=== PATIENT | male | born 1995 | race Caucasian/White ===

== ENCOUNTER 2016-08-23 02:19 | Emergency (ER) | payer SELFPAY ==
[2016-08-23 02:33] VITALS: BP 148/95; PULSE 75; RESP 16; TEMP 98.1; O2SAT 99
--- NOTE | 2016-08-23 04:13 | PD ---
HPI Chief Complaint: Alcohol/Drug Intoxication Time Seen by Provider: 04:08 Travel History International Travel<30 days: No Contact w/Intl Traveler<30days: No Traveled to known affect area: No History of Present Illness HPI 20-year-old white male presents to emergency department by EMS for evaluation of intoxication. The patient was at the [place] [employer] this evening drinking large quantities of alcohol. The patient became heavily intoxicated and wanted to sleep on the deck. EMS was summoned them the patient was brought to the ER. Here the patient is heavily intoxicated. No meaningful history is obtainable from the patient. Her is no evidence of trauma. He appears to be handling his secretions. [facility] Past Medical History Medical History: Unable to Obtain Tetanus Vaccination: Unknown Past Surgical History Surgical History: Unable to Obtain Social History Alcohol Use: Yes Tobacco Use: No Allergies-Medications (Allergen,Severity, Reaction): Coded Allergies: No Known Allergies (Unverified , 08/23/16) Reported Meds & Prescriptions Reported Meds & Active Scripts Active No Active Prescriptions or Reported Medications Review of Systems ROS Limitations: Intoxication Physical Exam Narrative GENERAL: Well-nourished, well-developed patient. Smells of EtOH appears heavily intoxicated. He is arousable to sternal rub but falls asleep readily. There is no evidence of trauma. SKIN: Warm and dry. HEAD: Normocephalic and atraumatic. EYES: No scleral icterus. No injection or drainage. ENT: No nasal drainage noted. Mucous membranes pink. Airway patent. The patient 's handling his secretions. NECK: Supple, trachea midline. Moves head freely without obvious discomfort. CARDIOVASCULAR: Regular rate and rhythm without murmurs, gallops, or rubs. RESPIRATORY: Breath sounds equal bilaterally. No accessory muscle use. GASTROINTESTINAL: Abdomen soft, non-tender, nondistended. EXTREMITIES: No cyanosis or edema. BACK: Nontender without obvious deformity. No CVA tenderness. NEURO: Patient is alert to person but he is not orientated. no sensorimotor deficits. Nonfocal. Slurred speech. Data Data Last Documented VS Vital Signs Date Time Temp Pulse Resp B/P Pulse Ox O2 Delivery O2 Flow Rate FiO2 08/23/16 02:33 98.1 75 16 148/95 99 MDM Medical Decision Making Medical Screen Exam Complete: Yes Emergency Medical Condition: Yes Medical Record Reviewed: Yes Differential Diagnosis Differential diagnoses: Alcohol intoxication, substance abuse, electrolyte abnormality, malingering Narrative Course The patient appears that he is here most likely for spring. He is heavily intoxicated. He does arouse to noxious stimuli but falls readily to sleep when the stimulation is removed. The patient is maintaining his airway. He is handling his secretions well. The patient will be allowed to sleep it off here in the emergency room. This is alcohol intoxication Diagnosis Primary Impression: Alcohol intoxication Qualified Code: F10.120 - Alcohol intoxication, uncomplicated Patient Instructions: General Instructions Additional Instructions: Rest. Increase fluids. Avoid alcohol. Avoid illegal substances. Follow-up with [facility] for detox. Do not operate a car or any heavy machinery under the influence of alcohol or drugs. Follow-up with a medical doctor this week. Return to the ER for emergencies Med/Other Pt SpecificInfo: No Meds Exist/No RX given Scripts No Active Prescriptions or Reported Meds Disposition: 01 DISCHARGE HOME Condition: Stable Azam Hebert Aug 23, 2016 04:12
== END 2016-08-23 09:21 | disposition home or self-care (01) ==
LOC: NEPA 02:19 → EDBD 02:19 → NEPA 09:21
DX: F10.120 Alcohol abuse with intoxication, uncomplicated (principal)
CPT/HCPCS: 99284